=== PATIENT | female | born 1995 ===

== ENCOUNTER 2021-02-16 13:47 | Outpatient (CLI) | payer OTHER | END 2021-02-16 14:02 | disposition home or self-care (01) | LOC: MRI 13:47 | PROVIDERS: ATTEND Obstetrics & Gynecology Maternal & Fetal Medicine | DX: D27.0 Benign neoplasm of right ovary (principal); D27.1 Benign neoplasm of left ovary | CPT/HCPCS: 72195 ==

== ENCOUNTER → 2021-02-20 09:34 | Outpatient (CLI) | payer OTHER | END | disposition home or self-care (01) | LOC: LAB 09:34 | PROVIDERS: ATTEND Obstetrics & Gynecology Maternal & Fetal Medicine | DX: N80.8 Other endometriosis (principal); N91.2 Amenorrhea, unspecified; N92.1 Excessive and frequent menstruation with irregular cycle; E03.8 Other specified hypothyroidism ==

== ENCOUNTER 2023-06-11 08:16 | Outpatient (CLI) | payer OTHER | END 2023-06-11 08:19 | disposition home or self-care (01) | LOC: PRENATAL 08:16 | PROVIDERS: ATTEND Obstetrics & Gynecology Maternal & Fetal Medicine | DX: O36.80X0 Pregnancy with inconclusive fetal viability, not applicable or unspecified (principal); Z36.83 Encounter for fetal screening for congenital cardiac abnormalities; Z36.9 Encounter for antenatal screening, unspecified; Z14.8 Genetic carrier of other disease; O26.899 Other specified pregnancy related conditions, unspecified trimester; Z3A.12 12 weeks gestation of pregnancy ==

== ENCOUNTER 2023-08-13 08:03 | Outpatient (CLI) | payer OTHER | END 2023-08-13 08:05 | disposition home or self-care (01) | LOC: PRENATAL 08:03 | PROVIDERS: ATTEND Obstetrics & Gynecology Maternal & Fetal Medicine | DX: O35.3XX0 Maternal care for (suspected) damage to fetus from viral disease in mother, not applicable or unspecified (principal); O44.00 Complete placenta previa NOS or without hemorrhage, unspecified trimester; O99.210 Obesity complicating pregnancy, unspecified trimester; Z3A.21 21 weeks gestation of pregnancy ==

== ENCOUNTER 2023-09-08 09:49 | Outpatient (CLI) | payer OTHER | END 2023-09-08 09:50 | disposition home or self-care (01) | LOC: PRENATAL 09:49 | PROVIDERS: ATTEND Obstetrics & Gynecology Maternal & Fetal Medicine | DX: O26.849 Uterine size-date discrepancy, unspecified trimester (principal); O99.210 Obesity complicating pregnancy, unspecified trimester; Z3A.24 24 weeks gestation of pregnancy ==

== ENCOUNTER → 2023-10-03 09:38 | Outpatient (CLI) | payer OTHER | END | disposition home or self-care (01) | LOC: PRENATAL 09:38 | PROVIDERS: ATTEND Obstetrics & Gynecology Maternal & Fetal Medicine | DX: O26.849 Uterine size-date discrepancy, unspecified trimester (principal); O99.210 Obesity complicating pregnancy, unspecified trimester; O24.419 Gestational diabetes mellitus in pregnancy, unspecified control; Z3A.28 28 weeks gestation of pregnancy ==

== ENCOUNTER 2023-10-31 08:49 | Outpatient (CLI) | payer OTHER ==
[~2023-10-31 08:49] MED LIST: ADVOCATE SYRIN1 EAC7 SUBCUTANEO; HUMULIN N100 UNIT/2 SUBCUTANEO
== END 2023-10-31 08:50 | disposition home or self-care (01) ==
LOC: PRENATAL 08:49
PROVIDERS: ATTEND Obstetrics & Gynecology Maternal & Fetal Medicine
DX: O26.849 Uterine size-date discrepancy, unspecified trimester (principal); O36.8199 Decreased fetal movements, unspecified trimester, other fetus; O99.210 Obesity complicating pregnancy, unspecified trimester; O24.419 Gestational diabetes mellitus in pregnancy, unspecified control; Z3A.32 32 weeks gestation of pregnancy

== ENCOUNTER → 2023-11-28 09:11 | Outpatient (CLI) | payer OTHER | END | disposition home or self-care (01) | LOC: PRENATAL 09:11 | PROVIDERS: ATTEND Obstetrics & Gynecology Maternal & Fetal Medicine | DX: O26.849 Uterine size-date discrepancy, unspecified trimester (principal); O36.8199 Decreased fetal movements, unspecified trimester, other fetus; O24.419 Gestational diabetes mellitus in pregnancy, unspecified control; Z3A.36 36 weeks gestation of pregnancy ==

== ENCOUNTER 2024-12-28 12:05 | Outpatient (CLI) | payer OTHER ==
[~2024-12-28 12:05] MED LIST changes: +FOLIC ACID20 MG PO; +HUMULIN R100 UNIT/1 SUBCUTANEO; +PRENATABS RX T1 EACH PO
== END 2024-12-28 12:10 | disposition home or self-care (01) ==
LOC: SONOGRAMA 12:05
DX: N91.0 Primary amenorrhea (principal)